=== PATIENT | male | born 1930 | race Caucasian/White ===

== ENCOUNTER 2016-06-23 14:01 | Outpatient (CLI) | payer MEDICARE, OTHER | END 2016-06-23 14:02 | disposition home or self-care (01) | DX: Z00.00 Encounter for general adult medical examination without abnormal findings (principal); J30.9 Allergic rhinitis, unspecified; I10 Essential (primary) hypertension; R05 Cough; L12.9 Pemphigoid, unspecified ==

== ENCOUNTER 2017-01-23 20:18 | Outpatient (CLI) | payer MEDICARE, OTHER | END 2017-01-23 20:19 | disposition critical access hospital (66) | LOC: EMS 20:18 | PROVIDERS: ATTEND Surgery | DX: R00.0 Tachycardia, unspecified (principal) | CPT/HCPCS: A0425; A0427 ==

== ENCOUNTER 2017-01-23 20:40 | Emergency (ER) | payer MEDICARE, OTHER ==
--- NOTE | 2017-01-23 20:56 | ED Physician Documentation ---
History of Present Illness - Stated complaint Stated Complaint: FAST HEART RATE - Chief complaint Chief Complaint: Cardiac - History obtained from History obtained from: Patient - History of Present Illness Timing: Today Pain level max: 0 Pain level now: 0 Improved by: asymptomatic Associated symptoms: none (asymptomatic) - Additonal information Additional information: patient has been taking his blood pressure routinely on a once or twice daily basis, tonight noticed his heart rate was reading 160 despite being asymptomatic. He checked a second time and had a similar result, thus called 911. He tells me that he has not symptoms, and that had he not checked his BP/ HR as per his routine, he would not have known anything was abnormal. Review of Systems Cardiac: denies: Chest pain / pressure, Palpitations, Calf pain Respiratory: reports: Reviewed and negative GI: reports: Reviewed and negative PD PAST MEDICAL HISTORY - Past Medical History Cardiovascular: Hypertension, High cholesterol Endocrine/Autoimmune: Other - Past Surgical History Past Surgical History: Yes General: Hiatal hernia repair Ortho: Hip replacement - Present Medications Home Medications: Ambulatory Orders Medication Instructions Recorded Confirmed Aspirin [Aspir 81] 81 mg PO DAILY 02/18/15 01/23/17 Calcium Carbonate [Calci-Chew] 500 mg PO DAILY 02/18/15 01/23/17 Losartan/Hydrochlorothiazide 1 tab PO DAILY 02/18/15 01/23/17 [Losartan-Hctz 100-25 mg Tab] Prednisone 5 mg PO DAILY 02/18/15 01/23/17 Dabigatran Etexilate Mesylate 150 mg PO BID #40 capsule 01/24/17 [Pradaxa] diltiaZEM CD [Cardizem Cd] 120 mg PO DAILY #20 capsule 01/24/17 - Allergies Allergies/Adverse Reactions: Allergies Allergy/AdvReac Type Severity Reaction Status Date / Time No Known Drug Allergies Allergy Verified 02/18/15 08:59 - Social History Does the pt smoke?: No Smoking Status: Never smoker Does the pt drink ETOH?: No Does the pt have substance abuse?: No - Immunizations Immunizations are current?: Yes PD ED PE NORMAL - Vitals Vital signs reviewed: Yes - General General: Alert and oriented X 3, No acute distress, Well developed/nourished - Neck Neck: Supple, no meningeal sign - Respiratory Respiratory: No respiratory distress, Clear bilaterally - Derm Derm: Normal color, Warm and dry - Extremities Extremities: No edema - Neuro Neuro: Alert and oriented X 3 PD ED PE EXPANDED - Cardiac Cardiac: Tachy, Regular Rhythm Results - Vitals Vitals: Vital Signs - 24 hr 01/23/17 01/23/17 01/23/17 20:42 21:09 21:35 Temperature 36.8 C Heart Rate 160 H 161 H Respiratory 12 20 Rate Blood Pressure 157/106 H 115/75 138/80 H O2 Saturation 97 96 01/23/17 01/23/17 01/23/17 21:46 21:49 22:07 Temperature Heart Rate 83 83 Respiratory 18 22 Rate Blood Pressure 97/57 L 105/62 115/70 O2 Saturation 97 95 01/23/17 01/24/17 23:16 00:18 Temperature 37.2 C Heart Rate 81 82 Respiratory 20 18 Rate Blood Pressure 134/74 H 135/82 H O2 Saturation 98 97 Oxygen O2 Source Room air - EKG (time done) No standard instances Rate: Rate (enter#) (159) Rhythm: Atrial flutter [place]: Normal Ischemia: T wave inversion (V4-V6 ,I, aVL) - Labs Labs: Laboratory Tests 01/23/17 01/23/17 01/23/17 19:26 19:26 19:26 WBC 6.3 RBC 4.54 L Hgb 14.7 Hct 43.7 MCV 96.3 H MCH 32.3 H MCHC 33.5 RDW 14.1 Plt Count 178 MPV 7.5 Neut # 3.8 Lymph # 1.3 L Mclean # 1.1 H Eos # 0.0 Baso # 0.0 Absolute Nucleated RBC 0.00 Nucleated RBC % 0.0 PT 11.1 INR 1.0 APTT 25.4 Sodium 136 Potassium 3.7 Chloride 98 L Carbon Dioxide 27 Anion Gap 11.0 BUN 19 Creatinine 0.9 Estimated GFR (MDRD) 79 L Glucose 94 Calcium 8.9 Troponin I 01/23/17 19:26 WBC RBC Hgb Hct MCV MCH MCHC RDW Plt Count MPV Neut # Lymph # Mclean # Eos # Baso # Absolute Nucleated RBC Nucleated RBC % PT INR APTT Sodium Potassium Chloride Carbon Dioxide Anion Gap BUN Creatinine Estimated GFR (MDRD) Glucose Calcium Troponin I < 0.04 PD MEDICAL DECISION MAKING - ED course Complexity details: reviewed results, re-evaluated patient, considered differential, d/w patient ED course: During H+P, patient had a few brief pauses (HR 160, missed one or two beats on two occasions), and this unmasked obvious atrial flutter waves on the monitor. Given 15mg IV Cardizem and subsequently had consistent rate of 82 BPM, narrow complex and regular with obvious atrial flutter waves on the monitor; this was his rate and rhythm for the remainder of his ED stay. D/W Dr. Gonzalez, tar and ammonia pump operator cardiology for [facility]; he recommends rx for cardizem (in addition to patient's losartan/HCTZ which he is already on) and anticoagulation with either Coumadin or NOAC (depending on patient's preference), d/c home and f/u with cardiology. I discussed this with patient and he is comfortable with this plan. He remained asymptomatic during entire ED stay. After discussion of risks/benefits of coumadin vs. NOAC, patient prefers NOAC (Predaxa given in ED and rx provided). Dr. Gonzalez did not recommend a "bridge" medication (such as lovenox) for this patient. Departure - Departure Disposition: Home, Self Care Clinical Impression: Atrial flutter Condition: Good Instructions: Atrial Flutter Follow-Up: Yahir Solis MD [Primary Care Provider] - Prescriptions: Dabigatran Etexilate Mesylate [Pradaxa] 150 mg PO BID #40 capsule diltiaZEM CD [Cardizem Cd] 120 mg PO DAILY #20 capsule Comments: You should follow up with cardiology. I discussed your case with Dr. Gonzalez ([facility]), but you can make an appointment to see him or one of his colleagues, and appointments are available at [facility] ([facility]). To make the appointment, you would contact the [facility] at and ask for an appointment with one of the cardiologists for [facility]. Take your blood pressure at least twice per day. If your systolic (upper number ) blood pressure is at or below 110, do not take the Cardizem that day. Discharge Date/Time: 01/24/17 00:33
[2017-01-23] MEDS ORDERED: diltiaZEM INJ 5 MG/ML VIAL IVP STA (21:06)
[2017-01-23 21:35] LABS: BASOPHILS % (AUTO) 0.6 %; EOSINOPHILS % (AUTO) 0.6 %; HCT - HEMATOCRIT 43.7 % (42.0-52.0); HGB - HEMOGLOBIN 14.7 g/dL (14.0-18.0); LYMPHOCYTES # (AUTO) 1.3 10^3/uL (1.5-3.5); LYMPHOCYTES % (AUTO) 20.8 %; MEAN CORPUSCULAR HEMOGLOBIN 32.3 pg (27.0-31.0); MEAN CORPUSCULAR HGB CONC 33.5 g/dL (32.0-36.0); MEAN CORPUSCULAR VOLUME 96.3 fL (80.0-94.0); MEAN PLATELET VOLUME 7.5 fL (7.4-11.4); MONOCYTES # (AUTO) 1.1 10^3/uL (0.0-1.0); MONOCYTES % (AUTO) 17.7 %; NEUTROPHILS # (AUTO) 3.8 10^3/uL (1.5-6.6); NEUTROPHILS % (AUTO) 60.3 %; RED BLOOD COUNT 4.54 10^6/uL (4.70-6.10); RED CELL DISTRIBUTION WIDTH 14.1 % (12.0-15.0); UNCORRECTED WHITE BLOOD COUNT 6.3 x10^3/uL; WHITE BLOOD COUNT 6.3 x10^3/uL (4.8-10.8)
[2017-01-23] MEDS ORDERED: diltiaZEM INJ 5 MG/ML VIAL ONE (21:35)
--- NOTE | 2017-01-23 21:35 | XRAY Preliminary Report ---
Exam: XR CHEST 1 VIEW IMPRESSION: Large heart without CHF. [facility] SITE ID: [id number]
--- NOTE | 2017-01-23 21:37 | XRAY Report ---
EXAM: CHEST RADIOGRAPHY EXAM DATE: 01/23/2017 09:14 PM. CLINICAL HISTORY: Tachy. Dysrhythmia. COMPARISON: 03/09/2015. TECHNIQUE: 1 view. FINDINGS: Lungs/Pleura: No focal opacities evident. No pleural effusion. No pneumothorax. Mediastinum: Large heart. Other: No bony abnormality identified. Bowel gas under the hemidiaphragms. IMPRESSION: Large heart without CHF. [facility] Referring Provider Line: [phone] SITE ID: [id number]
[2017-01-23 21:43] LABS: PT - PROTHROMBIN TIME 11.1 secs (9.9-12.6)
[2017-01-23 21:46] LABS: CALCIUM 8.9 mg/dL (8.5-10.3); CREATININE 0.9 mg/dL (0.6-1.2); POTASSIUM 3.7 mmol/L (3.5-5.0)
[2017-01-23 21:51] LABS: PARTIAL THROMBOPLASTIN TIME 25.4 secs (24.9-33.3)
[2017-01-24] MEDS ORDERED: DABIGATRAN 75 MG CAPSULE PO STA (00:09)
[2017-01-24 00:20] VITALS: BP 135/82
== END 2017-01-24 00:33 | disposition home or self-care (01) ==
LOC: EDUNIT# → ED 20:40
DX: I48.92 Unspecified atrial flutter (principal); R00.0 Tachycardia, unspecified; I10 Essential (primary) hypertension; E78.00 Pure hypercholesterolemia, unspecified; Z96.649 Presence of unspecified artificial hip joint
CPT/HCPCS: 71010; 80048; 84484; 85025; 85610; 85730; 93005; 99284

== ENCOUNTER 2017-01-24 17:26 | Emergency (ER) | payer MEDICARE, OTHER ==
[2017-01-24] MEDS ORDERED: diltiaZEM INJ 5 MG/ML VIAL IVP STA (17:44)
--- NOTE | 2017-01-24 17:45 | ED Physician Documentation ---
PD HPI CHEST PAIN - Stated complaint Stated Complaint: HEART RACING - Chief complaint Chief Complaint: Cardiac - History obtained from History obtained from: Patient - History of Present Illness Timing - onset: Other (He was seen here last night with high pulse rate, was in atrial flutter, better after dose of diltiazem here and cardiology was consulted and he was put on Pradaxa. He checked his vital signs this afternoon and his heart rate was high again. He went to the pharmacy and got his Cardizem and took it and waited a while but it did not come back down. He is completely asymptomatic with it, he denies weakness, dizziness, shortness of breath, chest pain, palpitations, or pedal edema.) Review of Systems Ten Systems: 10 systems reviewed and negative Nose: reports: Reviewed and negative Cardiac: reports: Reviewed and negative Respiratory: reports: Reviewed and negative PD PAST MEDICAL HISTORY - Past Medical History Cardiovascular: Hypertension, High cholesterol Endocrine/Autoimmune: Other - Past Surgical History Past Surgical History: Yes General: Hiatal hernia repair Ortho: Hip replacement - Present Medications Home Medications: Ambulatory Orders Medication Instructions Recorded Confirmed Calcium Carbonate [Calci-Chew] 500 mg PO DAILY 02/18/15 01/24/17 Losartan/Hydrochlorothiazide 0.5 tab PO DAILY 02/18/15 01/24/17 [Losartan-Hctz 100-25 mg Tab] Prednisone 5 mg PO DAILY 02/18/15 01/24/17 Dabigatran Etexilate Mesylate 150 mg PO BID #40 capsule 01/24/17 01/24/17 [Pradaxa] diltiaZEM CD [Cardizem Cd] 120 mg PO DAILY #20 capsule 01/24/17 01/24/17 - Allergies Allergies/Adverse Reactions: Allergies Allergy/AdvReac Type Severity Reaction Status Date / Time No Known Drug Allergies Allergy Verified 01/24/17 17:35 - Social History Does the pt smoke?: No Smoking Status: Never smoker Does the pt drink ETOH?: No Does the pt have substance abuse?: No - Immunizations Immunizations are current?: Yes PD ED PE NORMAL - Vitals Vital signs reviewed: Yes - General General: Alert and oriented X 3, No acute distress - Cardiac Cardiac: No murmur, Other (Very rapid, regular) - Respiratory Respiratory: No respiratory distress, Clear bilaterally - Abdomen Abdomen: Soft, Non tender - Extremities Extremities: No edema, No calf tenderness / cord - Neuro Neuro: Alert and oriented X 3, Normal speech - Psych Psych: Normal mood, Normal affect Results - Vitals Vitals: Vital Signs - 24 hr 01/24/17 01/24/17 01/24/17 17:32 17:48 17:51 Temperature 36.4 C L Heart Rate 154 H 151 H 78 Respiratory 20 18 Rate Blood Pressure 159/109 H 159/109 H O2 Saturation 96 96 01/24/17 01/24/17 01/24/17 17:53 17:56 18:00 Temperature Heart Rate 79 80 79 Respiratory 15 16 Rate Blood Pressure 106/65 114/66 O2 Saturation 96 96 01/24/17 01/24/17 01/24/17 18:05 18:12 18:27 Temperature Heart Rate 80 80 81 Respiratory 16 16 15 Rate Blood Pressure 108/68 110/67 106/60 O2 Saturation 98 94 97 Oxygen O2 Source Room air - EKG (time done) 1804 Rate: Rate (enter#) (80) Rhythm: Atrial flutter (With predominantly a 2-1 block) [place]: Normal QRS: LVH Ischemia: ST depression (Lateral) Computer interpretation: Agree with computer 1738 Rate: Rate (enter#) (155) Rhythm: Other (Narrow complex supraventricular tachycardia with lateral ST depression, probably atrial flutter given his history and the rate.) Computer interpretation: Agree with computer - Labs Labs: Laboratory Tests 01/24/17 01/24/17 01/24/17 17:46 17:46 17:46 WBC 6.5 RBC 4.74 Hgb 15.2 Hct 46.1 MCV 97.3 H MCH 32.0 H MCHC 32.9 RDW 14.1 Plt Count 178 MPV 7.3 L Neut # 4.6 Lymph # 1.2 L Wolfe # 0.8 Eos # 0.0 Baso # 0.0 Absolute Nucleated RBC 0.00 Nucleated RBC % 0.0 Sodium 132 L Potassium 3.5 Chloride 98 L Carbon Dioxide 27 Anion Gap 7.0 BUN 17 Creatinine 0.9 Estimated GFR (MDRD) 79 L Glucose 128 H Calcium 8.7 Total Bilirubin 0.9 AST 31 ALT 19 Alkaline Phosphatase 51 Troponin I < 0.04 Total Protein 6.4 L Albumin 3.9 Globulin 2.5 Albumin/Globulin Ratio 1.6 Lipase 37 PD MEDICAL DECISION MAKING - ED course ED course: 87-year-old gentleman with recurrent atrial flutter, after a dose of IV diltiazem he was again rate controlled. He was observed for a couple of hours in the emergency department without loss of rate control again, he was also ambulated in the fuller without evidence of tachycardia. Departure - Departure Disposition: 01 Home, Self Care Clinical Impression: Atrial flutter Qualifiers: Atrial flutter type: typical Qualified Code(s): I48.3 - Typical atrial flutter Condition: Good Record reviewed to determine appropriate education?: Yes Instructions: ED Afib Comments: Follow Dr. Nugent' discharge instructions from last night, he will need to follow-up with a marketing sales consultant. Return if worse. Also take the medications he prescribed you.
[2017-01-24] MEDS ORDERED: diltiaZEM INJ 5 MG/ML VIAL ONE (17:53)
[2017-01-24 18:08] LABS: BASOPHILS % (AUTO) 0.2 %; EOSINOPHILS % (AUTO) 0.5 %; HCT - HEMATOCRIT 46.1 % (42.0-52.0); HGB - HEMOGLOBIN 15.2 g/dL (14.0-18.0); LYMPHOCYTES # (AUTO) 1.2 10^3/uL (1.5-3.5); LYMPHOCYTES % (AUTO) 17.7 %; MEAN CORPUSCULAR HGB CONC 32.9 g/dL (32.0-36.0); MEAN CORPUSCULAR VOLUME 97.3 fL (80.0-94.0); MEAN PLATELET VOLUME 7.3 fL (7.4-11.4); MONOCYTES # (AUTO) 0.8 10^3/uL (0.0-1.0); MONOCYTES % (AUTO) 11.8 %; NEUTROPHILS # (AUTO) 4.6 10^3/uL (1.5-6.6); NEUTROPHILS % (AUTO) 69.8 %; RED BLOOD COUNT 4.74 10^6/uL (4.70-6.10); RED CELL DISTRIBUTION WIDTH 14.1 % (12.0-15.0); UNCORRECTED WHITE BLOOD COUNT 6.5 x10^3/uL; WHITE BLOOD COUNT 6.5 x10^3/uL (4.8-10.8)
[2017-01-24 18:11] LABS: ALBUMIN/GLOBULIN RATIO 1.6 (1.0-2.2); BILIRUBIN,TOTAL 0.9 mg/dL (0.2-1.0); CALCIUM 8.7 mg/dL (8.5-10.3); CREATININE 0.9 mg/dL (0.6-1.2); POTASSIUM 3.5 mmol/L (3.5-5.0); TOTAL PROTEIN 6.4 g/dL (6.7-8.2)
[2017-01-24] MEDS ORDERED: diltiaZEM 30 MG TABLET PO STA (18:22)
[2017-01-24] MEDS ORDERED: diltiaZEM 30 MG TABLET PO ONE (18:30)
[2017-01-24 19:27] VITALS: BP 121/67
== END 2017-01-24 19:35 | disposition home or self-care (01) ==
LOC: ED 17:26
DX: I48.3 Typical atrial flutter (principal); R00.0 Tachycardia, unspecified; I10 Essential (primary) hypertension; E78.00 Pure hypercholesterolemia, unspecified; Z96.649 Presence of unspecified artificial hip joint; Z79.02 Long term (current) use of antithrombotics/antiplatelets
CPT/HCPCS: 36415; 71010; 80048; 80053; 83690; 84484; 85025; 85610; 85730; 93005; 96374; 99284; A9270

== ENCOUNTER 2017-02-07 11:32 | Outpatient (CLI) | payer MEDICARE, OTHER | END 2017-02-07 11:33 | disposition home or self-care (01) | LOC: DI 11:32 | PROVIDERS: ATTEND Internal Medicine Cardiovascular Disease | DX: I48.91 Unspecified atrial fibrillation (principal); I77.810 Thoracic aortic ectasia; I51.7 Cardiomegaly | CPT/HCPCS: 93306 ==

== ENCOUNTER 2017-03-27 11:31 | Outpatient (CLI) | payer MEDICARE, OTHER ==
[2017-03-27 18:12] LABS: CALCIUM 9.3 mg/dL (8.5-10.3)
== END 2017-03-27 11:32 | disposition home or self-care (01) ==
LOC: LAB.F 11:31
PROVIDERS: ATTEND Internal Medicine
DX: J30.9 Allergic rhinitis, unspecified (principal); I10 Essential (primary) hypertension; I48.92 Unspecified atrial flutter; L12.9 Pemphigoid, unspecified
CPT/HCPCS: 36415; 80048; 84443

== ENCOUNTER 2017-09-22 09:22 | Emergency (ER) | payer MEDICARE, OTHER ==
[2017-09-22 10:15] LABS: BASOPHILS % (AUTO) 0.3 %; EOSINOPHILS # (AUTO) 0.1 10^3/uL (0.0-0.7); EOSINOPHILS % (AUTO) 1.2 %; HGB - HEMOGLOBIN 15.6 g/dL (14.0-18.0); LYMPHOCYTES # (AUTO) 1.2 10^3/uL (1.5-3.5); LYMPHOCYTES % (AUTO) 22.4 %; MEAN CORPUSCULAR HEMOGLOBIN 32.9 pg (27.0-31.0); MEAN CORPUSCULAR HGB CONC 33.3 g/dL (32.0-36.0); MEAN CORPUSCULAR VOLUME 98.7 fL (80.0-94.0); MEAN PLATELET VOLUME 7.2 fL (7.4-11.4); MONOCYTES # (AUTO) 0.6 10^3/uL (0.0-1.0); MONOCYTES % (AUTO) 11.8 %; NEUTROPHILS # (AUTO) 3.5 10^3/uL (1.5-6.6); NEUTROPHILS % (AUTO) 64.3 %; PLT - PLATELET COUNT 174 10^3/uL (130-450); RED BLOOD COUNT 4.75 10^6/uL (4.70-6.10); RED CELL DISTRIBUTION WIDTH 13.7 % (12.0-15.0); WHITE BLOOD COUNT 5.4 x10^3/uL (4.8-10.8)
[2017-09-22] MEDS ORDERED: MECLIZINE 12.5 MG TABLET PO STA (10:18)
--- NOTE | 2017-09-22 10:21 | ED Physician Documentation ---
History of Present Illness - Stated complaint Stated Complaint: DIZZINESS - Chief complaint Chief Complaint: Neuro - Additonal information Additional information: hx from pt and neighbor who is a nurse 87 male hx a fib / flutter - no clear if constant or intermittent on pradaxa this AM awoke feeling fine got up from breakfast to let the dog out at 9 AM felt very dizzy and off balance as if he might fall, had to cling to the door knob to stay up did not get hurt no LYMAN no CP no focal numbness or weakness no vision or hearing changes called neighbor for help and she did not not speech issues sx persist - OK when laying flat worse with moving no fever no cough no abd pain NVD no urinary sx no bloody black BM Review of Systems Constitutional: denies: Fever Ears: denies: Loss of hearing, Ear pain Cardiac: denies: Chest pain / pressure, Palpitations Respiratory: denies: Dyspnea GI: denies: Abdominal Pain, Nausea, Vomiting : denies: Dysuria Neurologic: denies: Focal weakness, Numbness, Syncope, Headache, Head injury Endocrine: reports: Easy bruising / bleeding Immunocompromised: denies: Immunocompromised PD PAST MEDICAL HISTORY - Past Medical History Cardiovascular: Hypertension, High cholesterol Endocrine/Autoimmune: Other - Past Surgical History Past Surgical History: Yes General: Hiatal hernia repair Ortho: Hip replacement - Present Medications Home Medications: Ambulatory Orders Medication Instructions Recorded Confirmed Calcium Carbonate [Calci-Chew] 500 mg PO DAILY 02/18/15 01/24/17 Losartan/Hydrochlorothiazide 0.5 tab PO DAILY 02/18/15 01/24/17 [Losartan-Hctz 100-25 mg Tab] Prednisone 5 mg PO DAILY 02/18/15 01/24/17 Dabigatran Etexilate Mesylate 150 mg PO BID #40 capsule 01/24/17 01/24/17 [Pradaxa] diltiaZEM CD [Cardizem Cd] 120 mg PO DAILY #20 capsule 01/24/17 01/24/17 Carbamide Peroxide Otic Drop 5 drops OT BID #1 bottle 09/22/17 [Debrox Otic Drops] Meclizine [Antivert] 25 mg PO Q6H PRN #20 tablet 09/22/17 - Allergies Allergies/Adverse Reactions: Allergies Allergy/AdvReac Type Severity Reaction Status Date / Time No Known Drug Allergies Allergy Verified 09/22/17 09:31 - Social History Does the pt smoke?: No Smoking Status: Never smoker Does the pt drink ETOH?: No Does the pt have substance abuse?: No - Immunizations Immunizations are current?: Yes - POLST Patient has POLST: No PD ED PE NORMAL - Vitals Vital signs reviewed: Yes - HEENT HEENT: Atraumatic, EOMI (slight nystagmus looking right, does not reproduce vertigo) - Neck Neck: Supple, no meningeal sign - Cardiac Cardiac: RRR - Respiratory Respiratory: No respiratory distress, Clear bilaterally - Abdomen Abdomen: Soft, Non tender - Derm Derm: Normal color - Extremities Extremities: Normal ROM s pain - Neuro Neuro: Alert and oriented X 3, medical surgical tech 2-12 intact, No motor deficit, No sensory deficit, Normal speech, Other (NIHSS zero) Eye Opening: Spontaneous Motor: Obeys Commands Verbal: Oriented GCS Score: 15 Results - Vitals Vitals: Vital Signs - 24 hr 09/22/17 09/22/17 09/22/17 09:26 09:48 11:33 Temperature 36 C L Heart Rate 89 66 67 Respiratory 16 17 16 Rate Blood Pressure 130/62 155/66 H 155/66 H O2 Saturation 98 97 96 Oxygen O2 Source Room air - EKG (time done) 1052 Rate: Rate (enter#) (66) Rhythm: Atrial flutter Ischemia: Non specific changes - Labs Labs: Laboratory Tests 09/22/17 09/22/17 09/22/17 09:59 09:59 09:59 WBC 5.4 RBC 4.75 Hgb 15.6 Hct 46.9 MCV 98.7 H MCH 32.9 H MCHC 33.3 RDW 13.7 Plt Count 174 MPV 7.2 L Neut # (Auto) 3.5 Lymph # (Auto) 1.2 L Bull[place] # (Auto) 0.6 Eos # (Auto) 0.1 Baso # (Auto) 0.0 Absolute Nucleated RBC 0.00 Nucleated RBC % 0.0 Sodium 137 Potassium 3.4 L Chloride 98 L Carbon Dioxide 30 Anion Gap 9.0 BUN 14 Creatinine 1.1 Estimated GFR (MDRD) 63 L Glucose 139 H Calcium 9.1 Troponin I < 0.04 - Rads (name of study) CTH Radiology: See rad report (no acute, old bibasilar ganglie infarcts) PD MEDICAL DECISION MAKING - ED course ED course: sx could be BPV or could be stroke sx - even though < 3 hr since onset would not be a TPA candidate 2/2 pradaxa CTH neg EKG rate controlled a flutter sx resolved with meclizine makes me feel this is more likely periph than CA TIA as sx have improved and he is already on pradaxa feel safe to dc though would rec fup PMD for carotids and perhaps echo - Sepsis Event Vital Signs: Vital Signs - 24 hr 09/22/17 09/22/17 09/22/17 09:26 09:48 11:33 Temperature 36 C L Heart Rate 89 66 67 Respiratory 16 17 16 Rate Blood Pressure 130/62 155/66 H 155/66 H O2 Saturation 98 97 96 Oxygen O2 Source Room air Departure - Departure Disposition: 01 Home, Self Care Clinical Impression: Vertigo Condition: Good Instructions: ED Vertigo Unspecified Follow-Up: Yahir Solis MD [Primary Care Provider] - Prescriptions: Carbamide Peroxide Otic Drop [Debrox Otic Drops] 5 drops OT BID #1 bottle Meclizine [Antivert] 25 mg PO Q6H PRN #20 tablet PRN Reason: Dizziness Comments: Your labs look fine The CT of your head did not show any bleeding, stroke or tumor Your EKG shows atrial flutter but that is not new and the rate is controlled Your symptoms got better with meclizine I think these symptoms were due to inner ear problems and not a stroke or mini stroke. - But i can't be totally sure. Since the symptoms are better, i think it is OK for you to go home. I have prescribed medication for the dizziness and to dissolve your ear wax We also gave you a walker to make sure you stay safe and do not fall - a fall would be terrible because you are on pradaxa. Also no driving until the dizziness is completely better I would like you to follow up with your PMD this week for a recheck and to discuss getting ultrasounds of your carotid arteries and heart chambers. If you are worse in any way (as we discussed) please come back to ER
[2017-09-22 10:24] LABS: CALCIUM 9.1 mg/dL (8.5-10.3); CREATININE 1.1 mg/dL (0.6-1.2)
--- NOTE | 2017-09-22 11:12 | CT Report ---
Procedure Date: 09/22/2017 Accession Number: [id number] / [id number] Procedure: CT - Head W/O CPT Code: FULL RESULT: EXAM: CT HEAD EXAM DATE: 09/22/2017 10:36 AM. CLINICAL HISTORY: Off balance a fib. COMPARISON: None. TECHNIQUE: Multiaxial CT images were obtained from the foramen magnum to the vertex. Reformats: Sagittal and coronal. IV contrast: None. In accordance with CT protocol optimization, one or more of the following dose reduction techniques were utilized for this exam: automated exposure control, adjustment of mA and/or KV based on patient size, or use of iterative reconstructive technique. FINDINGS: Parenchyma: No intraparenchymal hemorrhage. No evidence of mass, midline shift, or CT findings of acute infarction. Old bilateral basal ganglia infarcts Baum-white differentiation is distinct. 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 Extraaxial Spaces: Normal for age. No subdural or epidural collections identified. Ventricles: The ventricles and cortical sulci are enlarged, consistent with age-related tissue loss. Sinuses and orbits: Mucosal thickening ethmoid, right max a sinus Imaged paranasal sinuses, orbits, and mastoids show no significant abnormality. Bones: No evidence of fracture or calvarial defect. Other: None. IMPRESSION: 1. Generalized age-related cortical atrophic changes without evidence of acute intracranial abnormality. 2. Old bilateral basal ganglia infarcts [facility]
[2017-09-22 13:13] VITALS: BP 142/63
== END 2017-09-22 13:19 | disposition home or self-care (01) ==
LOC: ED 09:22
DX: R42 Dizziness and giddiness (principal); Z86.79 Personal history of other diseases of the circulatory system; Z79.01 Long term (current) use of anticoagulants
CPT/HCPCS: 36415; 70450; 80048; 84484; 85025; 93005; 99283; A9270

== ENCOUNTER 2017-10-14 12:51 | Outpatient (CLI) | payer MEDICARE, OTHER | END 2017-10-14 12:52 | disposition home or self-care (01) | LOC: DI 12:51 | PROVIDERS: ATTEND Internal Medicine | DX: R42 Dizziness and giddiness (principal) | CPT/HCPCS: 93306 ==

== ENCOUNTER 2017-11-10 11:30 | Outpatient (CLI) | payer MEDICARE, OTHER ==
--- NOTE | 2017-11-10 16:13 | XRAY Report ---
Reason: COUGH Procedure Date: 11/10/2017 Accession Number: [id number] / [id number] Procedure: XR - Chest 2 View X-Ray CPT Code: 48610 FULL RESULT: EXAM: CHEST RADIOGRAPHY EXAM DATE: 11/10/2017 12:31 PM. CLINICAL HISTORY: Cough. COMPARISON: Chest 1 view 01/23/2017 9:13 PM. TECHNIQUE: 2 views. FINDINGS: Lungs/Pleura: No focal opacities evident. No pleural effusion. No pneumothorax. Normal volumes. Mediastinum: Heart and mediastinal contours are unremarkable. 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 IMPRESSION: No acute cardiopulmonary abnormality. [facility]
== END 2017-11-10 11:31 | disposition home or self-care (01) ==
LOC: DI 11:30
PROVIDERS: ATTEND Internal Medicine
DX: R05 Cough (principal)
CPT/HCPCS: 71046